=== PATIENT | female | born 1995 | race Caucasian/White ===

== ENCOUNTER 2022-01-02 15:55 | Observation (INO) | payer MEDICAID, OTHER ==
[~2022-01-02] VITALS: Ht 154.9 cm; Wt 108.9 kg
[2022-01-02] MEDS ORDERED: ACETAMINOPHEN 500MG TABLET PO NR (17:00)
[2022-01-02] MEDS ORDERED: PNV1TABL76 MT (17:45)
== END 2022-01-02 18:00 | disposition home or self-care (01) ==
LOC: 8 EST LDRP 15:55
PROVIDERS: ADMIT Obstetrics & Gynecology; ATTEND Obstetrics & Gynecology
DX: O26.893 Other specified pregnancy related conditions, third trimester (principal); R10.30 Lower abdominal pain, unspecified; Z3A.33 33 weeks gestation of pregnancy
CPT/HCPCS: 59025; G0378; 99281

== ENCOUNTER 2022-01-30 19:43 | Observation (INO) | payer OTHER ==
[~2022-01-30 19:43] MED LIST: PNV1TABL76 MT
== END 2022-01-30 22:11 | disposition home or self-care (01) ==
LOC: 8 EST LDRP 19:43
PROVIDERS: ADMIT Obstetrics & Gynecology; ATTEND Obstetrics & Gynecology
DX: O62.9 Abnormality of forces of labor, unspecified (principal); O26.893 Other specified pregnancy related conditions, third trimester; Z3A.37 37 weeks gestation of pregnancy
CPT/HCPCS: 59025; 99281; G0378